=== PATIENT | female | born 1985 | race Caucasian/White ===

== ENCOUNTER 2019-01-17 21:08 | Emergency (ER) | payer OTHER ==
[~2019-01-17] VITALS: Ht 165.1 cm; Wt 78.5 kg
[2019-01-17] MEDS ORDERED: BIOTIN5000 MCG PO (21:21)
[2019-01-17] MEDS ORDERED: CALCIUM CITRAT250 MG PO (21:22)
[2019-01-17] MEDS ORDERED: VITAMIN B-121000 MC3 PO (21:22)
[2019-01-17] MEDS ORDERED: ESCITALOPRAM OX10 MG PO (21:22)
[2019-01-17] MEDS ORDERED: DIALYVITE 800800 MCG PO (21:23)
[2019-01-17] MEDS ORDERED: CANASA1000 MG PR (21:23)
[2019-01-17] MEDS ORDERED: ACETAMINOPHEN500 MG PO (21:24)
[2019-01-17] MEDS ORDERED: DILAUDID2 MG PO (21:49)
== END 2019-01-17 22:02 | disposition home or self-care (01) ==
LOC: ED 21:08
DX: O99.355 Diseases of the nervous system complicating the puerperium (principal); G89.18 Other acute postprocedural pain; R10.30 Lower abdominal pain, unspecified; Z79.899 Other long term (current) drug therapy
CPT/HCPCS: 99283